=== PATIENT | female | born 1980 | race Two or more races ===

== ENCOUNTER 2020-02-29 12:39 | Emergency (ER) | payer MEDICAID ==
[~2020-02-29] VITALS: Ht 154.9 cm; Wt 59.0 kg
[2020-02-29 12:49] VITALS: BP 104/69
[2020-02-29] MEDS ORDERED: KETOROLAC TROMETHAMINE INJ 60 MG/2 ML VIAL IM ONE (13:00)
[2020-02-29] MEDS ORDERED: METOCLOPRAMIDE HCL 10 MG TABLET PO ONE (13:00)
[2020-02-29] MEDS ORDERED: METOCLOPRAMIDE HCL 10 MG TABLET ONE (13:05)
[2020-02-29] MEDS ORDERED: KETOROLAC TROMETHAMINE INJ 30 MG/ML VIAL ONE (13:05)
--- NOTE | 2020-02-29 13:36 | NUR ---
ambulatory with steady gait. a/ox4, no sob noted. needs attended. Patient discharged to home in stable condition. Written and verbal after care instructions given. Patient verbalizes understanding of instruction.
== END 2020-02-29 13:36 | disposition home or self-care (01) ==
LOC: ER 12:41
DX: G43.909 Migraine, unspecified, not intractable, without status migrainosus (principal)
CPT/HCPCS: 96372; 99283; J1885; J8597